=== PATIENT | female | born 1950 | race Caucasian/White ===

== ENCOUNTER 2016-10-18 14:42 | Observation (INO) | payer MEDICARE, OTHER ==
[2016-10-18] MEDS ORDERED: MEDICATION INTERVENTION MC PRN ×2 (17:37→17:38)
[2016-10-18] MEDS ORDERED: MORPHINE SULFATE 2 MG INJ IV PRN (20:14)
[2016-10-18 20:38] LABS: Lactic Acid 2.3 (0.4-2.0)
[2016-10-18 20:48] LABS: Mean Cell Volume 91.6 fl (78-100); Mean Corpuscular Hemoglobin 31.1 pg (26-32); Mean Platelet Volume 9.4 fl (6-9.5); Platelet Count 155 K/mm3 (150-450); Red Blood Count 4.54 M/mm3 (4.1-5.4); Red Cell Distribution Width 13.8 % (11.5-14.0); White Blood Count 5.9 K/mm3 (4.0-10.5)
[2016-10-18 21:05] LABS: ALBUMIN 2.8 g/dL (3.4-5.0); ANION GAP 13.3 MEQ/L (5-15); BILIRUBIN,TOTAL 0.8 mg/dL (0.2-1.0); Carbon Dioxide 27.5 mEq/L (21-32); Total Protein 7.2 gm/dL (6.4-8.2)
[2016-10-18] MEDS: Sodium Chloride 0.9% 1000 ML 1,000 ML IV SCH (21:28)
[2016-10-18] MEDS ORDERED: NovoLOG Insulin SQ PRN (21:42)
[2016-10-18] MEDS ORDERED: LOSARTAN POTASSIUM PO SCH (22:00)
[2016-10-18] MEDS ORDERED: MILNACIPRAN HCL PO SCH (22:00)
[2016-10-18] MEDS ORDERED: [UNRECOGNIZED DRUG - OTHER] SQ SCH (22:00)
[2016-10-18] MEDS ORDERED: Levofloxacin 500MG/100ML D5W 500 MG/100 ML BAG IV SCH (22:00)
[2016-10-18] MEDS ORDERED: INSULIN ASPART SQ SCH (22:00)
[2016-10-18] MEDS ORDERED: INSULIN ASPART PROTAMINE SQ SCH (22:00)
[2016-10-18] MEDS ORDERED: INSULIN DETEMIR 70 UNIT SQ SCH (22:00)
[2016-10-18] MEDS: Lantus Insulin SQ SCH (22:03)
[2016-10-18] MEDS: Cozaar 50 MG PO SCH (22:07)
[2016-10-18] MEDS: TYLENOL 325 MG PO PRN (22:09)
[2016-10-19] MEDS: TYLENOL 325 MG PO PRN ×2 (04:20→17:02)
[2016-10-19] MEDS: Glucophage 500 MG PO SCH (07:52)
[2016-10-19] MEDS: NovoLOG Insulin SQ SCH ×2 (08:17→16:51)
--- NOTE | 2016-10-19 08:52 | PCM.NOTE ---
Date and Time: 10/19/16 0849 Subjective Assessment: doing little better - Review of Systems Constitutional: No Fever, No Chills Eyes: No Symptoms Ears, Nose, & Throat: No Symptoms Respiratory: No Cough, No Short Of Breath Cardiac: No Chest Pain, No Edema, No Syncope Abdominal/Gastrointestinal: No Abdominal Pain, No Nausea, No Vomiting, No Diarrhea Genitourinary Symptoms: No Dysuria Musculoskeletal: No Back Pain, No Neck Pain Skin: Cellulitis, No Rash Neurological: No Dizziness, No Focal Weakness, No Sensory Changes Psychological: No Symptoms Endocrine: No Symptoms Hematologic/Lymphatic: No Symptoms Immunological/Allergic: No Symptoms Objective Exam General Appearance: no apparent distress, alert Neurologic Exam: alert, oriented x 3, cooperative, normal mood/affect, nml cerebellar function, sensation nml, No motor deficits Skin Exam: normal color, warm, dry Eye Exam: PERRL, EOMI, eyes nml inspection Ears, Nose, Throat Exam: normal ENT inspection, pharynx normal, moist mucous membranes Neck Exam: normal inspection, non-tender, supple, full range of motion Respiratory Exam: normal breath sounds, lungs clear, No respiratory distress Cardiovascular Exam: regular rate/rhythm, normal heart sounds Gastrointestinal/Abdomen Exam: soft, No tenderness, No mass Extremity Exam: normal inspection, normal range of motion, inflammation Back Exam: normal inspection, normal range of motion, No CVA tenderness, No vertebral tenderness Pelvic Exam: deferred Rectal Exam: deferred OBJECTIVE DATA Vital Signs: Vital Signs - 24 hr Temp Pulse Resp BP Pulse Ox 10/19/16 07:06 98.4 F 97 H 20 132/55 94 L 10/19/16 04:10 99.4 F 91 H 18 131/62 99 10/18/16 23:36 100.1 F 108 H 22 142/70 98 10/18/16 19:54 100.5 F 81 18 140/65 99 10/18/16 16:04 98.2 F 97 H 18 162/77 96 10/18/16 15:05 98.2 F 97 H 18 162 96 Pain Assessment - Last Documented Pain Intensity 5 Pain Scale Used 0-10 Pain Scale Intake and Output: Intake & Output 10/16/16 10/17/16 10/18/16 10/19/16 11:59 11:59 11:59 11:59 Intake Total 1503 Output Total 900 Balance 603 Weight 145.694 kg Lab Results: Accuchecks Accucheck Value: 169 Accucheck Value: 210 Lab Results-Last 24 Hours 10/18/16 10/18/16 10/18/16 Range/Units 20:32 20:32 20:32 WBC 5.9 (4.0-10.5) K/mm3 RBC 4.54 (4.1-5.4) M/mm3 Hgb 14.1 (12.0-16.0) gm/dl Hct 41.6 (35-47) % MCV 91.6 (78-100) fl MCH 31.1 (26-32) pg MCHC 33.9 (32-36) g/dl RDW 13.8 (11.5-14.0) % Plt Count 155 (150-450) K/mm3 MPV 9.4 (6-9.5) fl Sodium 138 (136-145) mEq/L Potassium 4.0 (3.5-5.1) mEq/L Chloride 101 (98-107) mEq/L Carbon Dioxide 27.5 (21-32) mEq/L Anion Gap 13.3 (5-15) MEQ/L BUN 19 (9-20) mg/dL Creatinine 1.06 (0.55-1.30) mg/dl Estimated GFR 55 ML/MIN Glucose 237 H (70-110) MG/DL Hemoglobin A1c 6.9 H (4.5-6.2) Lactic Acid (0.4-2.0) Calcium 9.0 (8.5-10.1) mg/dL Total Bilirubin 0.80 (0.2-1.0) mg/dL AST 46 H (15-37) U/L ALT 36 (12-78) U/L Alkaline Phosphatase 86 (46-116) U/L Serum Total Protein 7.2 (6.4-8.2) gm/dL Albumin 2.8 L (3.4-5.0) g/dL 10/18/16 10/19/16 Range/Units 20:35 00:55 WBC (4.0-10.5) K/mm3 RBC (4.1-5.4) M/mm3 Hgb (12.0-16.0) gm/dl Hct (35-47) % MCV (78-100) fl MCH (26-32) pg MCHC (32-36) g/dl RDW (11.5-14.0) % Plt Count (150-450) K/mm3 MPV (6-9.5) fl Sodium (136-145) mEq/L Potassium (3.5-5.1) mEq/L Chloride (98-107) mEq/L Carbon Dioxide (21-32) mEq/L Anion Gap (5-15) MEQ/L BUN (9-20) mg/dL Creatinine (0.55-1.30) mg/dl Estimated GFR ML/MIN Glucose (70-110) MG/DL Hemoglobin A1c (4.5-6.2) Lactic Acid 2.3 H 1.9 (0.4-2.0) Calcium (8.5-10.1) mg/dL Total Bilirubin (0.2-1.0) mg/dL AST (15-37) U/L ALT (12-78) U/L Alkaline Phosphatase (46-116) U/L Serum Total Protein (6.4-8.2) gm/dL Albumin (3.4-5.0) g/dL Radiology Exams: Radiology Procedures Category Date Time Status ARTERIAL BILAT LOWER EXTREMITY [US] Urgent Exams 10/19/16 08:19 Ordered Assessment/Plan (1) Cellulitis and abscess of lower extremity Current Visit: Yes Status: Acute Assessment & Plan: will continue antibiotics Code(s): L03.119 - CELLULITIS OF UNSPECIFIED PART OF LIMB; L02.419 - CUTANEOUS ABSCESS OF LIMB, UNSPECIFIED (2) Type 2 diabetes mellitus Current Visit: Yes Status: Acute Qualifiers: Diabetes mellitus complication status: with hyperglycemia Diabetes mellitus detention officer insulin use: with halfway use Qualified Code(s): E11.65 - Type 2 diabetes mellitus with hyperglycemia; Z79.4 - group home (current) use of insulin (3) Fibromyalgia Current Visit: Yes Status: Chronic
[2016-10-19] MEDS ORDERED: PREVNAR 13 SYRINGE IM ONE (10:00)
[2016-10-19] MEDS ORDERED: Glucotrol Xl 10 MG PO SCH (10:00)
[2016-10-19] MEDS ORDERED: NON-FORMULARY ITEM (Cetirizine Hcl [Zyrtec] 1 TAB) PO SCH (10:00)
[2016-10-19] MEDS: TENORMIN 50 MG PO SCH (10:09)
[2016-10-19] MEDS: CLARITIN 10 MG PO SCH (10:09)
[2016-10-19] MEDS: Lantus Insulin SQ SCH ×2 (10:10→22:38)
--- NOTE | 2016-10-19 12:44 | XRAY ---
Indication: Sialitis. Two-dimensional sonogram and color Doppler imaging of the major arteries of the left and right leg was performed. Comparison: None Examination of the right leg negative for focal arteriosclerotic plaquing, critical stenosis, or obstruction. Arterial waveforms are multiphasic throughout. Examination of the left leg also widely patent. Arterial waveforms are multiphasic. Ankle brachial indices not performed due to open wounds and fibromyalgia. Impression: Left and right leg arterial ultrasound is negative for critical stenosis or obstruction. CTA abdominal aorta with runoff may yield further information if there remains further clinical concern.
[2016-10-19] MEDS: PATIENT OWN MEDICATION PO SCH ×2 (14:25→22:24)
[2016-10-19] MEDS: Sodium Chloride 0.9% 1000 ML 1,000 ML IV SCH (16:54)
[2016-10-19] MEDS ORDERED: Levofloxacin 500MG/100ML D5W 500 MG/100 ML BAG IV SCH (22:00)
[2016-10-19] MEDS: Cozaar 50 MG PO SCH (22:21)
[2016-10-20] MEDS: NovoLOG Insulin SQ SCH (07:53)
[2016-10-20] MEDS: TYLENOL 325 MG PO PRN (07:53)
[2016-10-20] MEDS: Glucophage 500 MG PO SCH (07:53)
[2016-10-20] MEDS: Lantus Insulin SQ SCH (09:54)
[2016-10-20] MEDS: TENORMIN 50 MG PO SCH (09:54)
[2016-10-20] MEDS: CLARITIN 10 MG PO SCH (09:54)
[2016-10-20] MEDS: PATIENT OWN MEDICATION PO SCH (09:56)
[2016-10-20 12:27] VITALS: BP 129/62; PULSE 69; O2SAT 99
--- NOTE | 2016-10-20 12:53 | PCM.DS ---
Discharge Summary Date of Admission: 10/18/16 14:54 Admitting Physician: LEONEL YANCEY Primary Care Provider: LEONEL YANCEY Allergies Allergies Penicillins Allergy (Verified 10/18/16 15:26) Hives prednisone Allergy (Verified 10/18/16 15:26) Hives Sulfa (Sulfonamide Antibiotics) Allergy (Verified 10/18/16 15:26) Hives Hospital Summary - Hospital Course Hospital Course: Chief Complaint Diagnosis cellulitis Allergies Allergy/AdvReac Type Severity Reaction Status Date / Time Penicillins Allergy Hives Verified 10/18/16 15:26 prednisone Allergy Hives Verified 10/18/16 15:26 Sulfa (Sulfonamide Allergy Hives Verified 10/18/16 15:26 Antibiotics) Vital Signs (Last 24 hours) Temp Pulse Resp BP BP Pulse Ox 10/20/16 12:00 98.2 F 69 20 129/62 99 10/20/16 09:54 78 132/55 10/20/16 08:00 98.4 F 78 22 123/66 93 L 10/20/16 04:00 98.5 F 91 H 22 141/75 98 10/19/16 23:40 98.6 F 81 18 140/65 98 10/19/16 20:00 98.3 F 79 20 135/62 95 10/19/16 16:24 98.3 F 86 20 143/69 97 10/19/16 12:53 97.7 F 65 65 H 118/75 97 Home Medications Medication Instructions Recorded Confirmed Last Taken Type Atenolol 50 mg [Tenormin 50 1 tab PO DAILY 10/18/16 10/18/16 10/18/16 History mg] Cetirizine HCl [Zyrtec] 1 tab PO DAILY 10/18/16 10/18/16 10/18/16 History Empagliflozin [Jardiance] 25 mg PO QAM 10/18/16 10/18/16 10/10/16 History Glipizide [Glipizide ER] 1 tab PO DAILY 10/18/16 10/18/16 10/18/16 History Insulin Aspart [NovoLOG 30 unit SQ BIDWMEALS 10/18/16 10/18/16 10/18/16 History Insulin] Insulin Detemir [Levemir] 70 units SQ BID 10/18/16 10/18/16 10/18/16 History Losartan Potassium 1 tab PO QHS 10/18/16 10/18/16 10/17/16 History Metformin HCl 500 mg 1 tab PO QAM 10/18/16 10/18/16 10/18/16 History [Glucophage 500 MG] Milnacipran HCl [Savella] 1 tab PO BID 10/18/16 10/18/16 10/18/16 History Current Medications Generic Name Dose Route Start Last Admin Trade Name Freq PRN Reason Stop Dose Admin Acetaminophen 650 mg 10/18/16 21:42 10/20/16 07:53 Tylenol 325 Mg PO 11/17/16 21:41 650 mg Q6H PRN PRN Administration PAIN AND/OR FEVER Atenolol 50 mg 10/19/16 10:00 10/20/16 09:54 Tenormin 50 Mg PO 11/18/16 09:59 50 mg DAILY ENMANUEL Administration Glipizide 10 mg 10/19/16 10:00 10/19/16 10:10 Glucotrol Xl 10 Mg PO 11/18/16 09:59 10 mg DAILY ENMANUEL Administration Sodium Chloride 1,000 mls @ 50 mls/hr 10/18/16 20:15 10/19/16 16:54 Sodium Chloride 0.9% 1000 Ml IV 11/17/16 20:14 50 mls/hr .Q20H ENMANUEL Administration Levofloxacin/Dextrose 500 mg in 100 mls @ 100 mls/hr 10/19/16 22:00 10/19/16 22:22 Levofloxacin 500mg/100ml D5w IV 11/18/16 21:59 100 mls/hr Q24H22 ENMANUEL Administration Insulin Aspart 30 unit 10/19/16 08:00 10/20/16 07:53 Novolog Insulin SQ 11/18/16 07:59 30 unit BIDWM ENMANUEL Administration Insulin Aspart 0 unit 10/18/16 21:42 10/18/16 22:06 Novolog Insulin SQ 11/17/16 21:41 2 unit UD PRN Administration HYPERGLYCEMIA Insulin Glargine 70 unit 10/18/16 22:00 10/20/16 09:54 Lantus Insulin SQ 11/17/16 21:59 70 unit BID ENMANUEL Administration Loratadine 10 mg 10/19/16 10:00 10/20/16 09:54 Claritin 10 Mg PO 11/18/16 09:59 10 mg DAILY ENMANUEL Administration Losartan Potassium 25 mg 10/18/16 22:00 10/19/16 22:21 Cozaar 50 Mg PO 11/17/16 21:59 25 mg HS ENMANUEL Administration Metformin HCl 500 mg 10/19/16 08:00 10/20/16 07:53 Glucophage 500 Mg PO 11/18/16 07:59 500 mg BREAKFAST ENMANUEL Administration Morphine Sulfate 2 mg 10/18/16 20:14 Morphine Sulfate 2 Mg Inj IV 10/23/16 20:13 Q4H PRN PRN PAIN Patient Own Med ( 0 each 10/19/16 13:30 10/20/16 09:56 Savella 50 Mg) PO 11/18/16 13:29 50 each BID ENMANUEL Administration Discontinued Medications Generic Name Dose Route Start Last Admin Trade Name Freq PRN Reason Stop Dose Admin Levofloxacin/Dextrose 500 mg in 100 mls @ 100 mls/hr 10/18/16 22:00 10/18/16 22:07 Levofloxacin 500mg/100ml D5w IV 11/17/16 21:59 100 mls/hr Q24H10 ENMANUEL Administration Pneumococcal 13-Valent Conj Vacc 0.5 ml 10/19/16 10:00 10/19/16 11:59 Prevnar 13 Syringe IM 10/19/16 10:01 0.5 ml .ONCE ONE Administration Intake & Output (Last 24 hours) 10/18/16 10/19/16 10/20/16 10/21/16 11:59 11:59 11:59 11:59 Intake Total 1923 2996 Output Total 1100 2500 Balance 823 496 Weight 145.694 kg Microbiology Results (Last 24 hours) 10/18/16 20:32 Blood - Pending 10/18/16 20:32 Blood Blood Culture - Preliminary NO GROWTH TO DATE Orders (Last 24 hours) Category Date Time Status Levofloxacin [Levofloxacin 500MG/100ML D5W] Med 10/19/16 22:00 Active 500 mg in 100 ml IV Q24H22 Patient Own Med [Patient Own Medication] Med 10/19/16 13:30 Active 0 each PO BID Patient Care Notes (Last 24 hours) 10/20/16 09:00 (created 10/20/16 11:13) Case Management Note by DarnellMargie CONTINUES TO PLAN TO RETURN HOME WITH ON DISCHARGE. DECLINED NEEDS FOR DISCHARGE. DID DISCUSS HHC SERVICES FOR [facility] SUPPORT ON DISCHARGE. PT REFUSED NEED. WILL FOLLOW FOR ALL DC NEEDS. NORMALLY INDEPENDENT WITH ALL ADL'S. Initialized on 10/20/16 11:13 - END OF NOTE - Vitals & Intake/Output Vital Signs: Vital Signs Temperature 98.2 F 10/20/16 12:00 Pulse Rate 69 10/20/16 12:00 Respiratory Rate 20 10/20/16 12:00 Blood Pressure 129/62 10/20/16 12:00 O2 Sat by Pulse Oximetry 99 10/20/16 12:00 Intake & Output: Intake & Output 10/18/16 10/19/16 10/20/16 10/21/16 11:59 11:59 11:59 11:59 Intake Total 1923 2996 Output Total 1100 2500 Balance 823 496 Weight 145.694 kg - Lab Result Diagrams: 10/18/16 20:32 10/18/16 20:32 Lab Results-Last 24 Hrs: Accuchecks Date 10/19/16 Time 22:00 Accucheck Value: 124 Accucheck Value: 162 Accucheck Value: 169 Micro Results-Entire Visit: Microbiology 10/18/16 20:32 Blood Culture - Preliminary Blood NO GROWTH TO DATE Accuchecks Date 10/19/16 Time 22:00 Accucheck Value: 124 Accucheck Value: 162 Accucheck Value: 169 - Radiology Exams Ordered Rad Exams-Entire Visit: Radiology Procedures Category Date Time Status ARTERIAL BILAT LOWER EXTREMITY [US] Urgent Exams 10/19/16 08:19 Completed - Procedures and Test Procedures and Tests throughout Hospitalization: Therapy Orders & Screens 10/18/16 16:18 OT Screen per Nursing Assess Comment: Protocol Order Physician Instructions: Greater than 3 points order OT Admission Screening Reason For Exam: Triggered on Admission Diagnosis: cellulitis Open Wound/Cellutlitis/Pressure Ulcers: Yes Acute Fx/ORIF/Change in wt bearing status: No Severe MUSCULOSKELETAL pain: No ADL Dysfunction: No Acute CVA w/Hemiparesis/Hemiplegia: No Decreased Functional Mobility/Strength: No Sprain/Strain: No Acute Post-op Mobility Dysfunction: No Total Points: 5 PT Screen per Nursing Assess ONCE Comment: Protocol Order Physician Instructions: Greater than 3 points order PT Admission Screenin Reason For Exam: Triggered on Admission Diagnosis: cellulitis Open Wound/Cellutlitis/Pressure Ulcers: Yes Acute Fx/ORIF/Change in wt bearing status: No Severe MUSCULOSKELETAL pain: No ADL Dysfunction: No Acute CVA w/Hemiparesis/Hemiplegia: No Decreased Functional Mobility/Strength: No Sprain/Strain: No Acute Post-op Mobility Dysfunction: No Total Points: 5 10/19/16 08:19 PT Eval & Treat (MD Order) ROUTINE Evaluate: Yes Treat: Yes Reason for Eval:: wound management and treatment Diagnosis: cellulitis Discharge Exam General Appearance: no apparent distress, alert Neurologic Exam: alert, oriented x 3, cooperative, normal mood/affect, nml cerebellar function, sensation nml, No motor deficits Skin Exam: normal color, warm, dry Eye Exam: PERRL, EOMI, eyes nml inspection Ears, Nose, Throat Exam: normal ENT inspection, pharynx normal, moist mucous membranes Neck Exam: normal inspection, non-tender, supple, full range of motion Respiratory Exam: normal breath sounds, lungs clear, No respiratory distress Cardiovascular Exam: regular rate/rhythm, normal heart sounds Gastrointestinal/Abdomen Exam: soft, No tenderness, No mass Extremity Exam: normal inspection, normal range of motion, inflammation, swelling Back Exam: normal inspection, normal range of motion, No CVA tenderness, No vertebral tenderness Pelvic Exam: deferred Rectal Exam: deferred Final Diagnosis/Problem List - Final Discharge Diagnosis/Problem (1) Cellulitis and abscess of lower extremity Current Visit: Yes Status: Resolved (2) Type 2 diabetes mellitus Current Visit: Yes Status: Chronic (3) Fibromyalgia Current Visit: Yes Status: Chronic - Discharge Discharge Date: 10/20/16 Disposition: Home, Self-Care Condition: Stable Prescriptions: New Levofloxacin [Levaquin] 500 mg PO DAILY #10 tablet Continue Empagliflozin [Jardiance] 25 mg PO QAM Glipizide [Glipizide ER] 1 tab PO DAILY Atenolol 50 mg [Tenormin 50 mg] 1 tab PO DAILY Milnacipran HCl [Savella] 1 tab PO BID Losartan Potassium 1 tab PO QHS Metformin HCl 500 mg [Glucophage 500 MG] 1 tab PO QAM Cetirizine HCl [Zyrtec] 1 tab PO DAILY Insulin Detemir [Levemir] 70 units SQ BID Insulin Aspart [NovoLOG Insulin] 30 unit SQ BIDWMEALS Instructions: Cellulitis -- Adult, Diabetes Type 2 Follow up with: LEONEL YANCEY MD [Primary Care Provider] - 1 Week Forms: Patient Portal Information
== END 2016-10-20 14:05 | disposition home or self-care (01) ==
LOC: MED SURG 14:54
PROVIDERS: ADMIT General Practice; ATTEND General Practice
DX: L03.116 Cellulitis of left lower limb (principal); L03.115 Cellulitis of right lower limb; L02.419 Cutaneous abscess of limb, unspecified; E66.01 Morbid (severe) obesity due to excess calories; E11.65 Type 2 diabetes mellitus with hyperglycemia; M79.7 Fibromyalgia; M79.89 Other specified soft tissue disorders; Z79.4 Long term (current) use of insulin; Z23 Encounter for immunization; Z79.899 Other long term (current) drug therapy
CPT/HCPCS: 82962 ×3; 87040; 36415; 83036; 85027; 80053; 93925; 97161; 83605 ×2; A6457 ×2; 90670; G0009; G0378; J1956; A9270-GY

== ENCOUNTER 2017-08-05 15:37 | Emergency (ER) | payer MEDICARE, OTHER ==
[2017-08-05] MEDS ORDERED: Sodium Chloride 0.9% 1000 ML 1,000 ML IV STA (16:11)
[2017-08-05] MEDS ORDERED: Phenergan 25 MG INJ IV ONE (16:11)
[2017-08-05] MEDS ORDERED: Phenergan 25 MG INJ ONE (16:16)
[2017-08-05] MEDS ORDERED: Sodium Chloride 0.9% 1000 ML 1,000 ML ONE (16:16)
--- NOTE | 2017-08-05 16:19 | ERPHSYRPT ---
- History of Present Illness Time Seen by Provider: 08/05/17 16:05 Historian: patient Exam Limitations: no limitations Patient Subjective Stated Complaint: pt reports vomiting x 2 days-denies diarrhea-denies pain-denies fever Triage Nursing Assessment: pt pink warm and inx-[id number] nonlabored-pupils reactive-moving all extremities-pt has not taken insulin due to vomiting Physician History: FOR THE PAST 2 DAYS PT HAS HAD NAUSEA AND VOMITING X10 WITHOUT BLOOD. LAST BM WAS THIS AM AND WNL. PT DENIES FEVER, CHEST PAIN, SHORTNESS OF AIR; ADMITS TO ABDOMINAL SORENESS AFTER VOMITING. Allergies/Adverse Reactions: Penicillins Allergy (Verified 08/05/17 15:41) Hives prednisone Allergy (Verified 08/05/17 15:41) Hives Sulfa (Sulfonamide Antibiotics) Allergy (Verified 08/05/17 15:41) Hives Home Medications: Atenolol 50 mg [Tenormin 50 mg] 1 tab PO DAILY 10/18/16 [History] Cetirizine HCl [Zyrtec] 1 tab PO DAILY 10/18/16 [History] Glipizide [Glipizide ER] 1 tab PO DAILY 10/18/16 [History] Insulin Aspart [NovoLOG Insulin] 30 unit SQ BIDWMEALS 10/18/16 [History] Insulin Detemir [Levemir] 70 units SQ BID 10/18/16 [History] Losartan Potassium 1 tab PO QHS 10/18/16 [History] Metformin HCl 500 mg [Glucophage 500 MG] 1 tab PO QAM 10/18/16 [History] Milnacipran HCl [Savella] 1 tab PO BID 10/18/16 [History] Hx Tetanus, Diphtheria Vaccination/Date Given: No Hx Influenza Vaccination/Date Given: No Hx Pneumococcal Vaccination/Date Given: No Immunizations Up to Date: Yes - Review of Systems Constitutional: No Fever Respiratory: No Dyspnea Cardiac: No Chest Pain Abdominal/Gastrointestinal: Abdominal Pain, Nausea, Vomiting, No Diarrhea Neurological: No Headache All Other Systems: Reviewed and Negative - Past Medical History Pertinent Past Medical History: Yes Neurological History: No Pertinent History ENT History: No Pertinent History Cardiac History: Hypertension Respiratory History: No Pertinent History Endocrine Medical History: Diabetes Type II Musculoskeletal History: Fibromyalgia GI Medical History: No Pertinent History History: No Pertinent History Psycho-Social History: Panic Disorder Female Reproductive Disorders: No Pertinent History Other Medical History: heart valve issue, - Past Surgical History Past Surgical History: Yes Neuro Surgical History: No Pertinent History Cardiac: No Pertinent History Respiratory: No Pertinent History Gastrointestinal: No Pertinent History Genitourinary: No Pertinent History Musculoskeletal: Orthopedic Surgery Female Surgical History: Hysterectomy Other Surgical History: KNEE SURGERIES BILATERALLY - Social History Smoking Status: Never smoker Exposure to second hand smoke: No Drug Use: none Patient Lives Alone: No - Female History Hx Now: No - Nursing Vital Signs Nursing Vital Signs: Initial Vital Signs Temperature 98.1 F 08/05/17 15:44 Pulse Rate 76 08/05/17 15:44 Respiratory Rate 18 08/05/17 15:44 Blood Pressure 196/80 08/05/17 15:44 O2 Sat by Pulse Oximetry 99 08/05/17 15:44 Pain Scale Pain Intensity 0 - Physical Exam General Appearance: alert Eye Exam: PERRL/EOMI Ears, Nose, Throat Exam: TMs normal, pharynx normal, dry mucous membranes Neck Exam: normal inspection Respiratory Exam: lungs clear Cardiovascular Exam: normal heart sounds Gastrointestinal/Abdomen Exam: soft, normal bowel sounds, No tenderness Back Exam: normal range of motion Extremity Exam: other (+1 ANKLE EDEMA BILATERALLY) Neurologic Exam: alert, cooperative SpO2 Interpretation: normal SpO2: 99 Oxygen Delivery: Room Air - Course Nursing assessment & vital signs reviewed: Yes Ordered Tests: Active Orders 24 hr Category Date Time Status IV Insertion STAT Care 08/05/17 16:11 Active AMYLASE Stat Lab 08/05/17 16:00 Completed CBC W DIFF Stat Lab 08/05/17 16:00 Completed CMP Stat Lab 08/05/17 16:00 Completed LIPASE Stat Lab 08/05/17 16:00 Completed MAGNESIUM Stat Lab 08/05/17 16:00 Completed Manual Differential NC Stat Lab 08/05/17 16:00 Completed UA W/RFX UR CULTURE Stat Lab 08/05/17 17:45 Completed Medication Summary Discontinued Medications Generic Name Dose Route Start Last Admin Trade Name Freq PRN Reason Stop Dose Admin Sodium Chloride 1,000 mls @ 999 mls/hr 08/05/17 16:11 08/05/17 16:19 Sodium Chloride 0.9% 1000 Ml IV 08/05/17 17:11 999 mls/hr .Q1H1M STA Administration Sodium Chloride Confirm 08/05/17 16:16 Sodium Chloride 0.9% 1000 Ml Administered 08/05/17 16:17 Dose 1,000 mls @ ud .ROUTE .STK-MED ONE Insulin Human Regular 6 unit 08/05/17 17:46 08/05/17 18:00 Novolin R IV 08/05/17 17:47 6 unit STAT ONE Administration Insulin Human Regular Confirm 08/05/17 17:51 Novolin R Administered 08/05/17 17:52 Dose 6 unit .ROUTE .STK-MED ONE Promethazine HCl 12.5 mg 08/05/17 16:11 08/05/17 16:18 Phenergan 25 Mg Inj IV 08/05/17 16:12 12.5 mg STAT ONE Administration Promethazine HCl Confirm 08/05/17 16:16 Phenergan 25 Mg Inj Administered 08/05/17 16:17 Dose 25 mg .ROUTE .STK-MED ONE Lab/Rad Data: Laboratory Result Diagrams 08/05/17 16:00 08/05/17 16:00 Laboratory Results 08/05/17 08/05/17 08/05/17 Range/Units 17:45 16:00 16:00 WBC 7.0 (4.0-10.5) K/mm3 RBC 5.10 (4.1-5.4) M/mm3 Hgb 15.1 (12.0-16.0) gm/dl Hct 44.5 (35-47) % MCV 87.3 (78-100) fl MCH 29.6 (26-32) pg MCHC 33.9 (32-36) g/dl RDW 13.3 (11.5-14.0) % Plt Count 221 (150-450) K/mm3 MPV 10.0 H (6-9.5) fl Absolute Granulocytes 4.58 (1.4-6.9) Sodium 135 L (137-145) mmol/L Potassium 4.3 (3.5-5.1) mmol/L Chloride 99 (98-107) mmol/L Carbon Dioxide 22 (22-30) mmol/L Anion Gap 18.8 H (5-15) MEQ/L BUN 17 (7-17) mg/dL Creatinine 0.72 (0.52-1.04) mg/dL Estimated GFR > 60.0 ML/MIN Glucose 350 H (74-106) mg/dL Calcium 9.2 (8.4-10.2) mg/dL Magnesium 1.8 (1.6-2.3) mg/dL Total Bilirubin 0.60 (0.2-1.3) mg/dL AST 59 H (14-36) U/L ALT 36 H (0-35) U/L Alkaline Phosphatase 95 (38-126) U/L Serum Total Protein 7.9 (6.3-8.2) g/dL Albumin 4.1 (3.5-5.0) g/dL Amylase 65 (30-110) U/L Lipase 94 (23-300) U/L Ur Collection Type CLEAN CATCH Urine Color LT.YELLOW (YELLOW) Urine Appearance CLEAR (CLEAR) Urine pH 5.0 (5-6) Ur Specific [place] 1.005 (1.005-1.025) Urine Protein NEGATIVE (Negative) Urine Ketones NEGATIVE (NEGATIVE) Urine Blood NEGATIVE (0-5) [place]/ul Urine Nitrite NEGATIVE (NEGATIVE) Urine Bilirubin NEGATIVE (NEGATIVE) Urine Urobilinogen NORMAL (0-1) mg/dL Ur Leukocyte Esterase NEGATIVE (NEGATIVE) Urine Culture Reflexed NO (NO) Urine Glucose 1000 (NEGATIVE) mg/dL Specimen Received 08/05/17 1745 - Departure Time of Disposition: 18:14 Departure Disposition: Home Clinical Impression: VOMITING, DM Condition: Stable Critical Care Time: No Referrals: LEONEL YANCEY MD [Primary Care Provider] - Instructions: Vomiting -- Adult Additional Instructions: FOLLOW UP WITH PRIVATE DOCTOR TOMORROW. Prescriptions: Promethazine HCl 25 mg [Phenergan 25 mg] 25 mg PO Q4H PRN PRN #14 tablet PRN Reason: Nausea/Vomiting
[2017-08-05 16:24] LABS: Granulocyte Absolute (ANC) 4.58 (1.4-6.9); Hematocrit 44.5 % (35-47); Hemoglobin 15.1 gm/dl (12.0-16.0); Mean Cell Volume 87.3 fl (78-100); Mean Corpuscular Hemoglobin 29.6 pg (26-32); Mean Corpuscular Hgb Concent. 33.9 g/dl (32-36); Platelet Count 221 K/mm3 (150-450); Red Cell Distribution Width 13.3 % (11.5-14.0)
[2017-08-05 16:28] LABS: ALBUMIN 4.1 g/dL (3.5-5.0); ALKALINE PHOSPHATASE 95 U/L (38-126); AMYLASE 65 U/L (30-110); ANION GAP 18.8 MEQ/L (5-15); BLOOD UREA NITROGEN 17 mg/dL (7-17); CHLORIDE 99 mmol/L (98-107); Calcium 9.2 mg/dL (8.4-10.2); Carbon Dioxide 22 mmol/L (22-30); Creatinine 1 0.72 mg/dL (0.52-1.04); Glucose 350 mg/dL (74-106); LIPASE 94 U/L (23-300); Potassium 4.3 mmol/L (3.5-5.1); SGOT/AST 59 U/L (14-36); SODIUM 135 mmol/L (137-145); Total Protein 7.9 g/dL (6.3-8.2)
[2017-08-05 16:35] LABS: SGPT/ALT 36 U/L (0-35)
[2017-08-05] MEDS ORDERED: NovoLIN R IV ONE (17:46)
[2017-08-05] MEDS ORDERED: NovoLIN R ONE (17:51)
[2017-08-05 17:55] LABS: Appearance CLEAR (CLEAR); Bilirubin NEGATIVE (NEGATIVE); Blood NEGATIVE Ery/ul (0-5); Glucose 1000 mg/dL (NEGATIVE); Ketones NEGATIVE (NEGATIVE); Leukocyte Esterase NEGATIVE (NEGATIVE); Nitrite NEGATIVE (NEGATIVE); Protein,Urine Dip NEGATIVE (Negative); Specific Gravity 1.005 (1.005-1.025); Urobilinogen NORMAL mg/dL (0-1)
[2017-08-05 18:15] VITALS: O2SAT 99
[2017-08-05 18:43] VITALS: BP 124/76; PULSE 76
[2017-08-06 00:13] LABS: Eosinophil 1 % (0.00-3.0); Lymphocytes 28 % (24-44); Monocyte 6 % (0.0-12.0); Neutrophils 65 % (36.0-66.0); Platelet Estimate NORMAL (NORMAL); Total Cells Counted 100
== END 2017-08-05 18:50 | disposition home or self-care (01) ==
LOC: ED 15:37
DX: R11.2 Nausea with vomiting, unspecified (principal); Z79.899 Other long term (current) drug therapy; R10.9 Unspecified abdominal pain; E11.9 Type 2 diabetes mellitus without complications; Z79.4 Long term (current) use of insulin; Z79.84 Long term (current) use of oral hypoglycemic drugs
CPT/HCPCS: 36000; 36415; 80053; 81002; 82150; 82962; 83690; 83735; 85025; 96360; 96374; 96375; 99283; 99284; J2550; A9270-GY

== ENCOUNTER 2018-06-20 18:38 | Emergency (ER) | payer MEDICARE, OTHER ==
[2018-06-20] MEDS ORDERED: Sodium Chloride 0.9% 1000 ML 1,000 ML IV STA ×2 (19:18→21:19)
[2018-06-20] MEDS ORDERED: Zofran 4 MG/2 ML VIAL IV ONE (19:18)
[2018-06-20] MEDS ORDERED: Pepcid 20 MG VIAL IV ONE ×2 (19:18→19:22)
--- NOTE | 2018-06-20 19:18 | ERPHSYRPT ---
- History of Present Illness Time Seen by Provider: 06/20/18 19:10 Historian: patient Patient Subjective Stated Complaint: Pt states "I have been vomiting today. I do not hurt, but I cannot keep anything down." Triage Nursing Assessment: Pt alert and oriented X 3, skin pwd Pt ambulates with a slow shuffling gait, able to speak in clear full sentences Pt slightly tachypniec, obese. Physician History: 68 y/o diabetic white female presents with vomiting several times today. pt cannot hold liquids down. pt denies cp, soa, and abd pain. Timing/Duration: today Activities at Onset: none Abdominal Pain Onset Location: other (no abd pain) Pain Radiation: no radiation Severity of Pain-Max: none Severity of Pain-Current: none Modifying Factors: Improves With: nothing Associated Symptoms: loss of appetite, nausea, vomiting, No chest pain, No diarrhea, No headache, No shortness of breath Previous symptoms: no prior history Allergies/Adverse Reactions: Penicillins Allergy (Verified 08/05/17 15:41) Hives prednisone Allergy (Verified 08/05/17 15:41) Hives Sulfa (Sulfonamide Antibiotics) Allergy (Verified 08/05/17 15:41) Hives Home Medications: Atenolol 50 mg [Tenormin 50 mg] 1 tab PO DAILY 10/18/16 [History] Cetirizine HCl [Zyrtec] 1 tab PO DAILY 10/18/16 [History] Glipizide [Glipizide ER] 1 tab PO DAILY 10/18/16 [History] Insulin Aspart [NovoLOG Insulin] 30 unit SQ BIDWMEALS 10/18/16 [History] Insulin Detemir [Levemir] 70 units SQ BID 10/18/16 [History] Losartan Potassium 1 tab PO QHS 10/18/16 [History] Metformin HCl 500 mg [Glucophage 500 MG] 1 tab PO QAM 10/18/16 [History] Milnacipran HCl [Savella] 1 tab PO BID 10/18/16 [History] Hx Tetanus, Diphtheria Vaccination/Date Given: No Hx Influenza Vaccination/Date Given: Yes Hx Pneumococcal Vaccination/Date Given: Yes Immunizations Up to Date: Yes - Review of Systems Constitutional: No Symptoms Eyes: No Symptoms Ears, Nose, & Throat: No Symptoms Respiratory: No Symptoms Cardiac: No Symptoms Abdominal/Gastrointestinal: Nausea, Vomiting, No Abdominal Pain Genitourinary Symptoms: No Symptoms, No Dysuria, No Frequency, No Hematuria Musculoskeletal: No Symptoms Skin: No Symptoms Neurological: No Symptoms Psychological: No Symptoms Endocrine: No Symptoms Hematologic/Lymphatic: No Symptoms Immunological/Allergic: No Symptoms All Other Systems: Reviewed and Negative - Past Medical History Pertinent Past Medical History: Yes Neurological History: No Pertinent History ENT History: No Pertinent History Cardiac History: Hypertension Respiratory History: No Pertinent History Endocrine Medical History: Diabetes Type II Musculoskeletal History: Fibromyalgia GI Medical History: No Pertinent History History: No Pertinent History Psycho-Social History: Panic Disorder Female Reproductive Disorders: No Pertinent History Other Medical History: heart valve issue, - Past Surgical History Past Surgical History: Yes Neuro Surgical History: No Pertinent History Cardiac: No Pertinent History Respiratory: No Pertinent History Gastrointestinal: No Pertinent History Genitourinary: No Pertinent History Musculoskeletal: Orthopedic Surgery Female Surgical History: Hysterectomy Other Surgical History: KNEE SURGERIES BILATERALLY - Social History Smoking Status: Former smoker Exposure to second hand smoke: No Drug Use: none Patient Lives Alone: No - Female History Hx Now: No - Nursing Vital Signs Nursing Vital Signs: Initial Vital Signs Temperature 97.7 F 06/20/18 18:55 Pulse Rate 98 H 06/20/18 18:55 Respiratory Rate 22 06/20/18 18:55 Blood Pressure 216/97 06/20/18 18:55 O2 Sat by Pulse Oximetry 98 06/20/18 18:55 Pain Scale Pain Intensity 2 - Physical Exam General Appearance: mild distress, alert, anxiety Eye Exam: PERRL/EOMI, eyes nml inspection Ears, Nose, Throat Exam: normal ENT inspection, dry mucous membranes Neck Exam: normal inspection, non-tender, supple, full range of motion Respiratory Exam: normal breath sounds, lungs clear, airway intact, No chest tenderness, No respiratory distress, No accessory muscle use, No rhonchi, No wheezing, No stridor Cardiovascular Exam: regular rate/rhythm, normal heart sounds, normal peripheral pulses Gastrointestinal/Abdomen Exam: soft, normal bowel sounds, No tenderness, No guarding, No rebound Pelvic Exam: not done Rectal Exam: not done, hemorrhoids Back Exam: normal inspection, normal range of motion, No CVA tenderness, No vertebral tenderness Extremity Exam: normal inspection, normal range of motion, pelvis stable Neurologic Exam: alert, oriented x 3, cooperative, staff genetic counselor II-XII nml as tested Skin Exam: normal color, warm, dry Lymphatic Exam: No adenopathy SpO2 Interpretation: normal SpO2: 98 O2 Delivery: Room Air - Course Nursing assessment & vital signs reviewed: Yes Ordered Tests: Active Orders 24 hr Category Date Time Status Clean Catch Urine Specimen STAT Care 06/20/18 19:18 Active IV Insertion STAT Care 06/20/18 19:18 Active AMYLASE Stat Lab 06/20/18 19:20 Completed CBC W DIFF Stat Lab 06/20/18 19:20 Completed CMP Stat Lab 06/20/18 19:20 Completed CULTURE,URINE Stat Lab 06/20/18 19:20 Received LIPASE Stat Lab 06/20/18 19:20 Completed UA W/RFX UR CULTURE Stat Lab 06/20/18 19:20 Completed Medication Summary Generic Name Dose Route Start Last Admin Trade Name Freq PRN Reason Stop Dose Admin Fluconazole 100 mg 06/21/18 21:10 Diflucan 100 Mg PO 06/21/18 21:11 ONCE ONE Discontinued Medications Generic Name Dose Route Start Last Admin Trade Name Freq PRN Reason Stop Dose Admin Cephalexin HCl 500 mg 06/20/18 21:09 Keflex 500 Mg PO 06/20/18 21:10 STAT ONE Famotidine 20 mg 06/20/18 19:18 06/20/18 19:26 Pepcid 20 Mg Vial IV 06/20/18 19:19 20 mg STAT ONE Administration Famotidine Confirm 06/20/18 19:22 Pepcid 20 Mg Vial Administered 06/20/18 19:23 Dose 20 mg IV .STK-MED ONE Sodium Chloride 1,000 mls @ 999 mls/hr 06/20/18 19:18 06/20/18 19:26 Sodium Chloride 0.9% 1000 Ml IV 06/20/18 20:18 999 mls/hr .Q1H1M STA Administration Sodium Chloride Confirm 06/20/18 19:22 Sodium Chloride 0.9% 1000 Ml Administered 06/20/18 19:23 Dose 1,000 mls @ ud .ROUTE .STK-MED ONE Ondansetron HCl 4 mg 06/20/18 19:18 06/20/18 19:26 Zofran 4 Mg/2 Ml Vial IV 06/20/18 19:19 4 mg STAT ONE Administration Ondansetron HCl Confirm 06/20/18 19:22 Zofran 4 Mg/2 Ml Vial Administered 06/20/18 19:23 Dose 4 mg .ROUTE .STK-MED ONE Lab/Rad Data: Laboratory Result Diagrams 06/20/18 19:20 06/20/18 19:20 Laboratory Results 06/20/18 06/20/18 06/20/18 Range/Units 19:20 19:20 19:20 WBC 8.6 (4.0-10.5) K/mm3 RBC 5.00 (4.1-5.4) M/mm3 Hgb 15.2 (12.0-16.0) gm/dl Hct 44.1 (35-47) % MCV 88.2 (78-100) fl MCH 30.4 (26-32) pg MCHC 34.5 (32-36) g/dl RDW 13.6 (11.5-14.0) % Plt Count 236 (150-450) K/mm3 MPV 9.7 H (6-9.5) fl Gran % 63.8 (36.0-66.0) % Eos # (Auto) 0.09 (0-0.5) Absolute Lymphs (auto) 2.51 (1.0-4.6) Absolute Monos (auto) 0.51 (0.0-1.3) Lymphocytes % 29.1 (24.0-44.0) % Monocytes % 5.9 (0.0-12.0) % Eosinophils % 1.0 (0.00-5.0) % Basophils % 0.2 (0.0-0.4) % Absolute Granulocytes 5.50 (1.4-6.9) Basophils # 0.02 (0-0.4) Sodium 139 (137-145) mmol/L Potassium 4.0 (3.5-5.1) mmol/L Chloride 101 (98-107) mmol/L Carbon Dioxide 25 (22-30) mmol/L Anion Gap 16.5 H (5-15) MEQ/L BUN 23 H (7-17) mg/dL Creatinine 0.78 (0.52-1.04) mg/dL Estimated GFR > 60.0 ML/MIN Glucose 189 H (74-106) mg/dL Calcium 9.9 (8.4-10.2) mg/dL Total Bilirubin 0.60 (0.2-1.3) mg/dL AST 41 H (14-36) U/L ALT 34 (0-35) U/L Alkaline Phosphatase 104 (38-126) U/L Serum Total Protein 8.5 H (6.3-8.2) g/dL Albumin 4.5 (3.5-5.0) g/dL Amylase 79 (30-110) U/L Lipase 76 (23-300) U/L Urine Color YELLOW (YELLOW) Urine Appearance SLIGHTLY CLOUDY (CLEAR) Urine pH 6.0 (5-6) Ur Specific [place] 1.020 (1.005-1.025) Urine Protein 30 (Negative) Urine Ketones NEGATIVE (NEGATIVE) Urine Blood NEGATIVE (0-5) [place]/ul Urine Nitrite NEGATIVE (NEGATIVE) Urine Bilirubin NEGATIVE (NEGATIVE) Urine Urobilinogen NEGATIVE (0-1) mg/dL Ur Leukocyte Esterase SMALL (NEGATIVE) Urine WBC (Auto) >100 (0-5) /HPF Urine RBC (Auto) 3-5 (0-2) /HPF U Epithel Cells (Auto) MODERATE (FEW) /HPF Urine Bacteria (Auto) MANY (NEGATIVE) /HPF Urine Mucus (Auto) SLIGHT (NEGATIVE) /HPF Urine Culture Reflexed YES (NO) Urine Glucose 150 (NEGATIVE) mg/dL - Progress Progress: improved, re-examined Progress Note: 06/20/18 21:11 pt states she is feeling much better. she is yasmeen pos. she states she can take keflex but can cause yeast infection Counseled pt/family regarding: lab results, diagnosis, need for follow-up, rad results - Departure Time of Disposition: 21:11 Departure Disposition: Home Clinical Impression: UTI (urinary tract infection), Vomiting Condition: Stable Critical Care Time: No Referrals: LEONEL YANCEY MD [Primary Care Provider] - Additional Instructions: drink plenty of fluids. take medications as prescribed. Prescriptions: Promethazine HCl 25 mg [Phenergan 25 mg] 25 mg PO Q8H PRN PRN #10 tablet PRN Reason: Nausea/Vomiting Cephalexin Mh 500 mg [Keflex 500 mg] 500 mg PO TID #21 capsule Fluconazole 100 mg [Diflucan 100 MG] 100 mg PO DAILY #2 tablet
[2018-06-20] MEDS ORDERED: Zofran 4 MG/2 ML VIAL ONE ×2 (19:22→21:17)
[2018-06-20] MEDS ORDERED: Sodium Chloride 0.9% 1000 ML 1,000 ML ONE ×2 (19:22→21:19)
[2018-06-20 19:29] LABS: BASOPHIL % 0.2 % (0.0-0.4); Basophil (Absolute #) 0.02 (0-0.4); Eosinophil (Absolute #) 0.09 (0-0.5); Granulocytes % 63.8 % (36.0-66.0); Hematocrit 44.1 % (35-47); Hemoglobin 15.2 gm/dl (12.0-16.0); Lymphocyte (Absolute #) 2.51 (1.0-4.6); Lymphocytes % 29.1 % (24.0-44.0); Mean Cell Volume 88.2 fl (78-100); Mean Corpuscular Hemoglobin 30.4 pg (26-32); Mean Corpuscular Hgb Concent. 34.5 g/dl (32-36); Mean Platelet Volume 9.7 fl (6-9.5); Monocyte (Absolute #) 0.51 (0.0-1.3); Monocytes % 5.9 % (0.0-12.0); Platelet Count 236 K/mm3 (150-450); Red Cell Distribution Width 13.6 % (11.5-14.0); White Blood Count 8.6 K/mm3 (4.0-10.5)
[2018-06-20 19:40] LABS: ALBUMIN 4.5 g/dL (3.5-5.0); ALKALINE PHOSPHATASE 104 U/L (38-126); AMYLASE 79 U/L (30-110); ANION GAP 16.5 MEQ/L (5-15); BLOOD UREA NITROGEN 23 mg/dL (7-17); CHLORIDE 101 mmol/L (98-107); Calcium 9.9 mg/dL (8.4-10.2); Carbon Dioxide 25 mmol/L (22-30); Creatinine 1 0.78 mg/dL (0.52-1.04); Glucose 189 mg/dL (74-106); LIPASE 76 U/L (23-300); SGOT/AST 41 U/L (14-36); SGPT/ALT 34 U/L (0-35); SODIUM 139 mmol/L (137-145); Total Protein 8.5 g/dL (6.3-8.2)
[2018-06-20 19:52] LABS: Appearance SLIGHTLY CLOUDY (CLEAR); Bacteria MANY /HPF (NEGATIVE); Bilirubin NEGATIVE (NEGATIVE); Blood NEGATIVE Ery/ul (0-5); Epithelial Cells MODERATE /HPF (FEW); Glucose 150 mg/dL (NEGATIVE); Ketones NEGATIVE (NEGATIVE); Leukocyte Esterase SMALL (NEGATIVE); Mucus SLIGHT /HPF (NEGATIVE); Nitrite NEGATIVE (NEGATIVE); Protein,Urine Dip 30 (Negative); Urobilinogen NEGATIVE mg/dL (0-1); WBC >100 /HPF (0-5)
[2018-06-20 20:40] VITALS: BP 161/69
[2018-06-20 20:59] VITALS: PULSE 85
[2018-06-20] MEDS ORDERED: KEFLEX 500 MG PO ONE (21:09)
[2018-06-20 21:16] VITALS: O2SAT 98
[2018-06-20] MEDS ORDERED: KEFLEX 500 MG ONE (21:17)
[2018-06-20] MEDS ORDERED: Phenergan 25 MG INJ IM ONE (21:19)
[2018-06-20] MEDS ORDERED: Phenergan 25 MG INJ ONE (21:22)
[2018-06-20] MEDS ORDERED: Diflucan 100 MG ONE (21:40)
[2018-06-21] MEDS ORDERED: Diflucan 100 MG PO ONE (21:10)
== END 2018-06-20 22:45 | disposition home or self-care (01) ==
LOC: ED 18:38
DX: N39.0 Urinary tract infection, site not specified (principal); R11.2 Nausea with vomiting, unspecified; E11.9 Type 2 diabetes mellitus without complications; Z79.4 Long term (current) use of insulin; I10 Essential (primary) hypertension; M79.7 Fibromyalgia
CPT/HCPCS: 36000; 36415; 80053; 81001; 82150; 83690; 85025; 87077; 87086; 87186; 96360; 96361; 96372; 96374; 96375; 99284; J2405; J2550; A9270-GY

== ENCOUNTER 2019-05-12 10:33 | Emergency (ER) | payer MEDICARE, OTHER ==
--- NOTE | 2019-05-12 11:10 | ERPHSYRPT ---
- History of Present Illness Time Seen by Provider: 05/12/19 10:59 Source: patient Exam Limitations: no limitations Physician History: pt states she has had a strange feeling over her left facial cheek for the past 3 days with swelling starting yesterday over the same area; denies fever, chest pain, vomiting. Allergies/Adverse Reactions: Penicillins Allergy (Verified 05/12/19 10:57) Hives prednisone Allergy (Verified 05/12/19 10:57) Hives Sulfa (Sulfonamide Antibiotics) Allergy (Verified 05/12/19 10:57) Hives Home Medications: Atenolol 50 mg [Tenormin 50 mg] 1 tab PO HS 10/18/16 [History] Cetirizine HCl [Zyrtec] 1 tab PO HS 10/18/16 [History] Glipizide [Glipizide ER] 1 tab PO HS 10/18/16 [History] Insulin Aspart [NovoLOG Insulin] 30 unit SQ BIDWMEALS 10/18/16 [History] Insulin Detemir [Levemir] 70 units SQ BID 10/18/16 [History] Losartan Potassium 1 tab PO QHS 10/18/16 [History] Metformin HCl 500 mg [Glucophage 500 MG] 1 tab PO HS 10/18/16 [History] Milnacipran HCl [Savella] 1 tab PO BID 10/18/16 [History] Meloxicam 7.5 mg [Mobic 7.5 MG] 7.5 mg PO BID 05/12/19 [History] Hx Tetanus, Diphtheria Vaccination/Date Given: No Hx Influenza Vaccination/Date Given: Yes Hx Pneumococcal Vaccination/Date Given: Yes - Review of Systems Constitutional: No Fever Ears, Nose, & Throat: Mouth Swelling (left upper) Respiratory: No Dyspnea Cardiac: No Chest Pain All Other Systems: Reviewed and Negative - Past Medical History Pertinent Past Medical History: Yes Neurological History: No Pertinent History ENT History: No Pertinent History Cardiac History: Hypertension Respiratory History: No Pertinent History Endocrine Medical History: Diabetes Type II Musculoskeletal History: Fibromyalgia GI Medical History: No Pertinent History History: No Pertinent History Psycho-Social History: Panic Disorder Female Reproductive Disorders: No Pertinent History Other Medical History: heart valve issue, - Past Surgical History Past Surgical History: Yes Neuro Surgical History: No Pertinent History Cardiac: No Pertinent History Respiratory: No Pertinent History Gastrointestinal: No Pertinent History Genitourinary: No Pertinent History Musculoskeletal: Orthopedic Surgery Female Surgical History: Hysterectomy Other Surgical History: KNEE SURGERIES BILATERALLY - Social History Smoking Status: Former smoker Exposure to second hand smoke: No Drug Use: none Patient Lives Alone: No - Physical Exam General Appearance: alert Eye Exam: bilateral eye: PERRL, EOMI Ear Exam: bilateral ear: TM normal Nasal Exam: normal inspection Throat Exam: maxillary swelling (left upper gum mildly edematous and erythematous around a premolar.) Neck Exam: normal inspection Cardiovascular/Respiratory Exam: normal breath sounds, heart sounds normal Abdominal Exam: soft (b.s. normal) Neurologic Exam: alert, cooperative Skin Exam: warm, dry - Departure Clinical Impression: Abscessed tooth Condition: Stable Critical Care Time: No Referrals: LEONEL YANCEY MD [Primary Care Provider] - Instructions: Tooth Abscess (DC) Additional Instructions: follow up with private dentist tomorrow. Prescriptions: Cephalexin Monohydrate [Keflex] 500 mg PO TID #30 capsule
[2019-05-12] MEDS ORDERED: Rocephin 1000 MG INJ IM ONE (11:12)
[2019-05-12] MEDS ORDERED: Rocephin 1000 MG INJ ONE (11:15)
[2019-05-12] MEDS ORDERED: XYLOCAINE 1% HCL 20 ML MDV ONE (11:15)
[2019-05-12 12:43] VITALS: BP 131/61; PULSE 60; O2SAT 98
== END 2019-05-12 12:47 | disposition home or self-care (01) ==
LOC: ED 10:33
DX: K04.7 Periapical abscess without sinus (principal)
CPT/HCPCS: 96372; 99283; J0696

== ENCOUNTER 2020-09-22 11:22 | Observation (INO) | payer MEDICARE, OTHER ==
[2020-09-22 12:32] LABS: INFLUENZA A NEGATIVE (NEGATIVE); INFLUENZA B NEGATIVE (NEGATIVE); RESPIRATORY SYNCTIAL VIRUS NEGATIVE (Negative)
[2020-09-22] MEDS ORDERED: TYLENOL EXTRA STRENGTH 500 MG PO PRN (14:37)
[2020-09-22] MEDS ORDERED: Ativan 2 MG/1 ML VIAL IV PRN ×2 (14:37→15:45)
[2020-09-22] MEDS ORDERED: PROVENTIL Solution 2.5 MG/0.5 ML IH PRN (14:38)
[2020-09-22] MEDS ORDERED: REMDESIVIR 200 MG in Sodium Chloride 0.9% 250 ML 250 ML IV ONE (15:00)
[2020-09-22] MEDS: DECADRON 10MG INJ. IV SCH (15:16)
[2020-09-22] MEDS: ENOXAPARIN SODIUM SQ SCH (15:16)
--- NOTE | 2020-09-22 15:33 | HP ---
CHIEF COMPLAINT: Shortness of breath, cough. HISTORY OF PRESENT ILLNESS: The patient is a 70 year-old white female who came to the emergency room with the above complaints after coughing for seven days. Actually she went to Dr. Villagran's office and there she had an O2 saturation of 85% after she walked in and it went back up to 90% with sitting. She is a nonsmoker, cough is productive. She achy, tired, chills, has not taken the COVID vaccine. She does not know of anybody who has had COVID recently although her [id number] from COVID. MEDICATIONS: Zyrtec 10 q.d., Savella 50 once a day, losartan 25 once a day, Atenolol 50 q.d., Glipizide extended release 10 mg takes one a day although it is prescribed b.i.d., Humalog Qwik Pen 100 units. She takes 40 units at supper time. Levemir 100 units b.i.d., Metformin 500 once a day. She is off the azithromycin and was placed on that initially. ALLERGIES: DARVOCET. PENICILLIN. PREDNISONE. SULFA. PAST MEDICAL HISTORY: Diabetes mellitus for at least 20 years. Hyperlipidemia. Seasonal allergies. Fibromyalgia. Osteoporosis. History of depression, anxiety, panic attacks. Hospitalizations: The last one was in 2017 because of peripheral edema. She has had no deep vein thrombosis. REVIEW OF SYSTEMS: GENERAL: No loss of appetite, fever, chills. No change in taste. No weight change. HEENT: No sore throat. No change in vision. RESPIRATORY: Shortness of breath on exertion. Moderate cough with exertion. CVS: No history of heart attacks, heart failure. She is on an WILLIAM inhibitor so I assume she has hypertension although she has long standing diabetes also so it may be for renal protection. GI: No abdominal pain, nausea, vomiting or change in bowel movements. MUSCULOSKELETAL: The patient had knee replacement. Knees ache and does not walk well. NEUROLOGIC: No headaches. No weakness. No dizziness. : No problems urinating. FAMILY HISTORY: Father and mother . Two sons, one daughter healthy. SOCIAL HISTORY: Nonsmoker, does not drink. She lives in [place]. PHYSICAL EXAMINATION: The patient is an obese, appropriately aged 70 year-old white female who is alert and pleasant. HEENT: Pupils equal and reactive to light. NECK: Supple without adenopathy. CHEST: Clear. No wheezes or rales. CVS: Regular rate. No murmurs or gallops. ABDOMEN: Obese. No tenderness or organomegaly. EXTREMITIES: Trace edema. Chronic stasis changes. Good pulses. LAB DATA AND TESTS: X-ray: The patient has bilateral pneumonia typical for COVID. Labs are not on the chart. IMPRESSION: COVID test is positive. Other medical problems: Morbid obesity, diabetes mellitus, hypertension without heart failure. PLAN: The patient will be started on Remdesivir, Decadron. She is anticoagulated prophylactically. She will be given some Ativan for anxiety which is chronic which could be made worse with the Decadron. These things have been explained to her. We are optimistic about her prognosis. I will follow.
[2020-09-22] MEDS ORDERED: MOTRIN 200 MG PO PRN (15:45)
[2020-09-22] MEDS ORDERED: MEDICATION INTERVENTION PO SCH (16:00)
[2020-09-22 16:24] LABS: ALBUMIN 3.2 g/dL (3.5-5.0); ALKALINE PHOSPHATASE 73 U/L (38-126); ANION GAP 8.5 MEQ/L (5-15); BLOOD UREA NITROGEN 18 mg/dL (7-17); CHLORIDE 102 mmol/L (98-107); Calcium 7.9 mg/dL (8.4-10.2); Carbon Dioxide 29 mmol/L (22-30); Creatinine 1 0.92 mg/dL (0.52-1.04); EST GLOMERULAR FILTRATION RATE > 60.0 ML/MIN; Glucose 214 mg/dL (74-106); NT PRO BNP 296 pg/mL (0-900); Potassium 4.4 mmol/L (3.5-5.1); SGOT/AST 45 U/L (14-36); SGPT/ALT 23 U/L (0-35); SODIUM 135 mmol/L (137-145); Total Protein 6.1 g/dL (6.3-8.2)
--- NOTE | 2020-09-22 16:26 | XRAY ---
Indication: Short of breath. Positive COVID 19. Comparison: April 21, 2009. Portable chest demonstrates new diffuse bilateral patchy airspace disease without consolidation/pleural effusion. Heart not enlarged. Bony thorax intact again with mild degenerative changes.
[2020-09-22 16:37] LABS: Absolute Neutrophil Ct (ANC) 2.42 (1.4-6.9); Basophil (Absolute #) 0 (0-0.4); Eosinophil % 0.2 % (0.00-5.0); Eosinophil (Absolute #) 0.01 (0-0.5); Hematocrit 38.2 % (35-47); Hemoglobin 12.5 gm/dl (12.0-16.0); Lymphocyte (Absolute #) 1.64 (1.0-4.6); Lymphocytes % 37.1 % (24.0-44.0); Mean Cell Volume 89.7 fl (78-100); Mean Corpuscular Hemoglobin 29.3 pg (26-32); Mean Corpuscular Hgb Concent. 32.7 g/dl (32-36); Mean Platelet Volume 9.8 fl (7.5-11.0); Monocyte (Absolute #) 0.35 (0.0-1.3); Monocytes % 7.9 % (0.0-12.0); Neutrophil % 54.8 % (36.0-66.0); Platelet Count 146 K/mm3 (150-450); Red Blood Count 4.26 M/mm3 (4.1-5.4); Red Cell Distribution Width 13.3 % (11.5-14.0); White Blood Count 4.4 K/mm3 (4.0-10.5)
[2020-09-22] MEDS: HYDROCODONE-CHLORPHEN ER SUSP PO PRN ×2 (16:51→22:51)
[2020-09-22] MEDS: HUMALOG SQ SCH (16:53)
[2020-09-22] MEDS: CLARITIN 10 MG PO SCH (21:48)
[2020-09-22] MEDS: Glucophage 500 MG PO SCH (21:48)
[2020-09-22] MEDS: Glucotrol Xl 10 MG PO SCH (21:48)
[2020-09-22] MEDS: Cozaar 50 MG PO SCH (21:48)
[2020-09-22] MEDS: Lantus Insulin SQ SCH (21:49)
[2020-09-22] MEDS: TENORMIN 50 MG PO SCH (21:50)
[2020-09-22] MEDS ORDERED: NON-FORMULARY ITEM (Cetirizine Hcl [Zyrtec] 1 TAB) PO SCH (22:00)
[2020-09-22] MEDS ORDERED: LOSARTAN POTASSIUM PO SCH (22:00)
[2020-09-23] MEDS: HYDROCODONE-CHLORPHEN ER SUSP PO PRN (05:27)
[2020-09-23] MEDS ORDERED: HYDROCODONE-CHLORPHEN ER SUSP PO PRN (08:15)
[2020-09-23] MEDS: HUMALOG SQ SCH ×3 (08:19→17:03)
[2020-09-23] MEDS: DECADRON 10MG INJ. IV SCH (09:58)
[2020-09-23] MEDS: ENOXAPARIN SODIUM SQ SCH (09:59)
[2020-09-23] MEDS ORDERED: INSULIN DETEMIR 100 UNIT SQ SCH (10:00)
[2020-09-23] MEDS ORDERED: MILNACIPRAN HCL PO SCH (10:00)
[2020-09-23] MEDS ORDERED: Zofran 4 MG/2 ML VIAL IV PRN (10:14)
[2020-09-23] MEDS: REMDESIVIR 100 MG in Sodium Chloride 0.9% 100 ML BAG 100 ML IV SCH (14:49)
[2020-09-23] MEDS: Glucophage 500 MG PO SCH (21:53)
[2020-09-23] MEDS: Cozaar 50 MG PO SCH (21:53)
[2020-09-23] MEDS: CLARITIN 10 MG PO SCH (21:53)
[2020-09-23] MEDS: TENORMIN 50 MG PO SCH (21:53)
[2020-09-23] MEDS: Glucotrol Xl 10 MG PO SCH (21:53)
[2020-09-23] MEDS: Lantus Insulin SQ SCH (21:53)
[2020-09-23] MEDS: HUMALOG SQ PRN (21:54)
[2020-09-24] MEDS ORDERED: VENTOLIN COMMON CANISTER IH PRN (03:54)
[2020-09-24] MEDS: HUMALOG SQ SCH ×3 (07:32→16:59)
[2020-09-24] MEDS: ENOXAPARIN SODIUM SQ SCH (09:05)
[2020-09-24] MEDS: DECADRON 10MG INJ. IV SCH (09:05)
[2020-09-24] MEDS: REMDESIVIR 100 MG in Sodium Chloride 0.9% 100 ML BAG 100 ML IV SCH (15:17)
[2020-09-24] MEDS: Glucophage 500 MG PO SCH (16:59)
[2020-09-24] MEDS: CLARITIN 10 MG PO SCH (21:50)
[2020-09-24] MEDS: TENORMIN 50 MG PO SCH (21:51)
[2020-09-24] MEDS: Lantus Insulin SQ SCH (21:51)
[2020-09-24] MEDS: Cozaar 50 MG PO SCH (21:51)
[2020-09-24] MEDS: Glucotrol Xl 10 MG PO SCH (21:51)
[2020-09-24] MEDS: HUMALOG SQ PRN (21:52)
[2020-09-25] MEDS: HUMALOG SQ SCH ×3 (08:09→16:55)
[2020-09-25] MEDS: Glucophage 500 MG PO SCH ×2 (08:09→16:55)
[2020-09-25] MEDS: ENOXAPARIN SODIUM SQ SCH (09:48)
[2020-09-25] MEDS: DECADRON 10MG INJ. IV SCH (09:48)
[2020-09-25] MEDS: REMDESIVIR 100 MG in Sodium Chloride 0.9% 100 ML BAG 100 ML IV SCH (15:06)
[2020-09-25] MEDS: Glucotrol Xl 10 MG PO SCH (21:12)
[2020-09-25] MEDS: CLARITIN 10 MG PO SCH (21:12)
[2020-09-25] MEDS: Lantus Insulin SQ SCH (21:12)
[2020-09-25] MEDS: TENORMIN 50 MG PO SCH (21:12)
[2020-09-25] MEDS: Cozaar 50 MG PO SCH (21:13)
[2020-09-26] MEDS: Glucophage 500 MG PO SCH (07:52)
[2020-09-26 08:14] LABS: Hematocrit 41.3 % (35-47); Hemoglobin 13.7 gm/dl (12.0-16.0); Mean Cell Volume 88.4 fl (78-100); Mean Corpuscular Hemoglobin 29.3 pg (26-32); Mean Corpuscular Hgb Concent. 33.2 g/dl (32-36); Mean Platelet Volume 9.5 fl (7.5-11.0); Platelet Count 273 K/mm3 (150-450); Red Blood Count 4.67 M/mm3 (4.1-5.4); Red Cell Distribution Width 13.1 % (11.5-14.0); White Blood Count 8.8 K/mm3 (4.0-10.5)
[2020-09-26] MEDS: HUMALOG SQ SCH ×2 (08:34→08:51)
[2020-09-26 08:38] LABS: ALBUMIN 3.3 g/dL (3.5-5.0); ALKALINE PHOSPHATASE 86 U/L (38-126); ANION GAP 8.1 MEQ/L (5-15); BLOOD UREA NITROGEN 41 mg/dL (7-17); CHLORIDE 107 mmol/L (98-107); Calcium 8.3 mg/dL (8.4-10.2); Carbon Dioxide 28 mmol/L (22-30); Creatinine 1 0.82 mg/dL (0.52-1.04); EST GLOMERULAR FILTRATION RATE > 60.0 ML/MIN; Glucose 172 mg/dL (74-106); Potassium 4.1 mmol/L (3.5-5.1); SGOT/AST 30 U/L (14-36); SGPT/ALT 23 U/L (0-35); SODIUM 140 mmol/L (137-145); Total Protein 6.4 g/dL (6.3-8.2)
[2020-09-26] MEDS: HUMALOG SQ PRN (08:50)
[2020-09-26] MEDS: ENOXAPARIN SODIUM SQ SCH (09:32)
[2020-09-26] MEDS: DECADRON 10MG INJ. IV SCH (09:33)
[2020-09-26 11:11] VITALS: BP 154/66; PULSE 59; O2SAT 94
[2020-09-26 15:15] LABS: Lymphocytes 7 % (24-44); Monocyte 6 % (0.0-12.0); Neutrophils 87 % (36.0-66.0); Platelet Estimate NORMAL (NORMAL); Total Cells Counted 100
== END 2020-09-26 10:55 | disposition home or self-care (01) ==
LOC: MED SURG 12:04
PROVIDERS: ADMIT General Practice; ATTEND Family Medicine
DX: U07.1 COVID-19 (principal); J12.82 Pneumonia due to coronavirus disease 2019; E11.9 Type 2 diabetes mellitus without complications; E78.5 Hyperlipidemia, unspecified; Z79.899 Other long term (current) drug therapy; I10 Essential (primary) hypertension; F41.9 Anxiety disorder, unspecified; Z20.828 Contact with and (suspected) exposure to other viral communicable diseases
CPT/HCPCS: 0241U; 36415; 71045; 80053; 82947; 83036; 83880; 85025; 85379; 93268; 94762; G0378; J1100; J1650; J1817; J2405; A9270-GY

== ENCOUNTER 2021-04-22 17:34 | Emergency (ER) | payer MEDICARE ==
--- NOTE | 2021-04-22 19:07 | ERPHSYRPT ---
- History of Present Illness Source: patient Exam Limitations: no limitations Patient Subjective Stated Complaint: Pt states "I fell the day before and hurt my right hip, had it x rayed and it was ok. It has been hurting ever since. They came to x ray it again today and when they jostled me around I could not take the pain. They called in tramadol but the pharmacy is closed and I just hurt to bad." Triage Nursing Assessment: Pt presented alert and oriented X 3, skin pwd. Pt able to speak in clear full sentences pt in no apparent respiratory distress. pt has tenderness ot her right hip. Occurred: this morning Reason for Fall: unknown Injuries/Pain Location: lower extremity (Right hip) Loss of Consciousness: no loss of consciousness Quality: throbbing Severity of Pain-Max: severe Severity of Pain-Current: severe Modifying Factors: Improves With: nothing Associated Symptoms (Fall): denies symptoms Hx Tetanus, Diphtheria Vaccination/Date Given: No Hx Influenza Vaccination/Date Given: Yes Hx Pneumococcal Vaccination/Date Given: Yes Immunizations Up to Date: Yes <NE HINES - Last Filed: 04/22/21 19:01> <MINA PEREZ - Last Filed: 04/22/21 19:42> - History of Present Illness Time Seen by Provider: 04/22/21 17:45 Physician History: Patient is a 71-year-old white female who is obese and fell the day before and injured her right hip. She has been having PT at home and getting worse today x-ray was attempted by home health results uncertain and she had markedly increased pain after the x-ray. (NE HINES) Allergies/Adverse Reactions: acetaminophen [From Darvocet-N 100] Allergy (Unknown, Verified 09/22/20 12:47) Hives propoxyphene [From Darvocet-N 100] Allergy (Unknown, Verified 09/22/20 12:47) Hives Penicillins Allergy (Verified 05/12/19 10:57) Hives prednisone Allergy (Verified 05/12/19 10:57) Hives Sulfa (Sulfonamide Antibiotics) Allergy (Verified 05/12/19 10:57) Hives Home Medications: Atenolol 50 mg [Tenormin 50 mg] 1 tab PO HS 10/18/16 [History] Cetirizine HCl [Zyrtec] 1 tab PO HS 10/18/16 [History] Glipizide [Glipizide ER] 1 tab PO HS 10/18/16 [History] Insulin Aspart [NovoLOG Insulin] 40 unit SQ DAILY 10/18/16 [History] Insulin Detemir [Levemir] 100 units SQ DAILY 10/18/16 [History] Losartan Potassium 1 tab PO QHS 10/18/16 [History] Metformin HCl 500 mg [Glucophage 500 MG] 1 tab PO HS 10/18/16 [History] Milnacipran HCl [Savella] 1 tab PO DAILY 10/18/16 [History] Ibuprofen 200 mg [Motrin 200 mg] 200 mg PO Q4HPRN PRN 09/22/20 [History] Travel Risk - International Travel Have you traveled outside of the country in past 3 weeks: No - Coronavirus Screening Are you exhibiting any of the following symptoms?: No Close contact with a COVID-19 positive Pt in past 14-21 Days: No - Vaccine Status Have you recieved a Covid-19 vaccination: No <NE HINES - Last Filed: 04/22/21 19:01> - Review of Systems Constitutional: No Fever, No Chills Eyes: No Symptoms Ears, Nose, & Throat: No Symptoms Respiratory: No Cough, No Dyspnea Cardiac: No Chest Pain, No Edema, No Syncope Abdominal/Gastrointestinal: No Abdominal Pain, No Nausea, No Vomiting, No Diarrhea Genitourinary Symptoms: No Dysuria Musculoskeletal: Joint Pain, No Back Pain, No Neck Pain Skin: No Rash Neurological: No Dizziness, No Focal Weakness, No Sensory Changes Psychological: No Symptoms Endocrine: No Symptoms All Other Systems: Reviewed and Negative <NE HINES - Last Filed: 04/22/21 19:01> - Past Medical History Pertinent Past Medical History: Yes Neurological History: No Pertinent History ENT History: No Pertinent History Cardiac History: Hypertension Respiratory History: Pneumonia Endocrine Medical History: Diabetes Type II Musculoskeletal History: Fibromyalgia, Osteoarthritis GI Medical History: No Pertinent History History: No Pertinent History Psycho-Social History: Panic Disorder Female Reproductive Disorders: No Pertinent History Other Medical History: heart valve issue, - Past Surgical History Past Surgical History: Yes Neuro Surgical History: No Pertinent History Cardiac: No Pertinent History Respiratory: No Pertinent History Gastrointestinal: No Pertinent History Genitourinary: No Pertinent History Musculoskeletal: Orthopedic Surgery Female Surgical History: Hysterectomy Other Surgical History: KNEE SURGERIES BILATERALLY - Social History Smoking Status: Former smoker Exposure to second hand smoke: No Drug Use: none Patient Lives Alone: No - Female History Hx Now: No <NE HINES Filed: 04/22/21 19:01> - Desmond Coma Score Best Eye Response ([place]mond): (4) open spontaneously Best Verbal Response ([place]): (5) oriented Best Motor Response ([place]): (6) obeys commands [place] Total: 15 - Physical Exam General Appearance: no apparent distress, alert Head Injury: no evidence of injury Eye Exam: PERRL/EOMI ENT Exam: airway nml Neck Exam: normal inspection, No tenderness Respiratory/Chest Exam: normal breath sounds, No chest tenderness, No respiratory distress Cardiovascular Exam: normal heart sounds, regular rate/rhythm Gastrointestinal Exam: soft, No tenderness, No distention, No guarding, No ecchymosis Back Exam: normal inspection, No vertebral tenderness Extremity Exam: normal inspection, normal range of motion, pelvis stable, other (Posterior pelvis seems stable), No deformities Neurologic Exam: alert, oriented x 3, cooperative, sensation nml, No motor deficits Skin Exam: normal color, warm, dry SpO2 Interpretation: normal SpO2: 98 O2 Delivery: Room Air <NE HINES Filed: 04/22/21 19:01> - Nursing Vital Signs Nursing Vital Signs: Initial Vital Signs Temperature 98.6 F 04/22/21 17:35 Pulse Rate 92 H 04/22/21 17:35 Respiratory Rate 20 04/22/21 17:35 Blood Pressure 153/74 04/22/21 17:35 O2 Sat by Pulse Oximetry 95 04/22/21 17:35 Pain Scale Pain Intensity 9 - Course Nursing assessment & vital signs reviewed: Yes - CT Exams Lower Extremity CT Interpretation: Other (CT scan shows a slightly impacted right femur subcapital fracture) <NE HINES Filed: 04/22/21 19:01> Ordered Tests: Active Orders 24 hr Category Date Time Status Catheter-Mercer Brenner STAT Care 04/22/21 19:11 Active IV Insertion STAT Care 04/22/21 19:14 Active Oxygen-ED Only Nasal Cannula 3 lpm Care 04/22/21 19:25 Active LOWER EXTREMITY WO CONTRAST [CT] Stat Exams 04/22/21 17:49 Taken CBC W DIFF Stat Lab 04/22/21 19:11 Ordered CMP Stat Lab 04/22/21 19:11 Ordered CULTURE,URINE Stat Lab 04/22/21 19:12 Ordered PROTIME WITH INR Stat Lab 04/22/21 19:11 Ordered UA W/RFX UR CULTURE Stat Lab 04/22/21 19:11 Ordered Medication Summary Generic Name Dose Route Start Last Admin Trade Name Freq PRN Reason Stop Dose Admin Sodium Chloride 1,000 mls @ 100 mls/hr 04/22/21 19:15 04/22/21 19:19 Sodium Chloride 0.9% 1000 Ml IV 05/22/21 19:14 100 mls/hr .Q10H ENMANUEL Administration Discontinued Medications Generic Name Dose Route Start Last Admin Trade Name Freq PRN Reason Stop Dose Admin Hydromorphone HCl 1 mg 04/22/21 19:08 04/22/21 19:20 Hydromorphone 1 Mg/1ml Inj 1 Mg/Ml Syringe IV 04/22/21 19:09 1 mg STAT ONE Administration Hydromorphone HCl Confirm 04/22/21 19:16 Hydromorphone 1 Mg/1ml Inj 1 Mg/Ml Syringe Administered 04/22/21 19:17 Dose 1 mg .ROUTE .STK-MED ONE Ondansetron HCl 4 mg 04/22/21 19:11 04/22/21 19:19 Ondansetron Hcl 4 Mg/2 Ml Vial IV 04/22/21 19:12 4 mg STAT ONE Administration Ondansetron HCl Confirm 04/22/21 19:16 Ondansetron Hcl 4 Mg/2 Ml Vial Administered 04/22/21 19:17 Dose 4 mg .ROUTE .STK-MED ONE - Progress Progress: unchanged <NE HINES - Last Filed: 04/22/21 19:01> - Progress Counseled pt/family regarding: lab results, diagnosis, need for follow-up, rad results <MINA PEREZ - Last Filed: 04/22/21 19:42> - Progress Progress Note: 04/22/21 19:40 Medical decision making: This [facility] and was having pain in the right hip. She was receiving physical therapy. On 04/01/2021 she underwent hip and pelvic x-ray and there was no evidence of any abnormalities. However, she was having a lot of pain in the right hip today and physical therapy was there and it was too painful for her to have an x-ray done. Patient was sent to the emergency department where a CT scan was performed which showed a right subcapital hip fracture. I contacted [facility] Dr. Melissa. She has the trauma surgeon on at that facility. I reviewed the patient history and the findings on the CAT scan of the right hip. She accepts the patient in transfer. (MINA PEREZ) - Departure Critical Care Time: No <NE HINES - Last Filed: 04/22/21 19:01> - Departure Departure Disposition: Transfer Critical Care Time: No <MINA PEREZ - Last Filed: 04/22/21 19:42> - Departure Clinical Impression: Hip fracture, right Condition: Stable Referrals: LEONEL YANCEY MD [Primary Care Provider] - Follow up/PCP as directed Instructions: Hip Fracture (DC)
[2021-04-22] MEDS ORDERED: Hydromorphone 1 mg/ml Injection IV ONE (19:08)
[2021-04-22] MEDS ORDERED: Zofran 4 MG/2 ML VIAL IV ONE (19:11)
[2021-04-22] MEDS ORDERED: Sodium Chloride 0.9% 1000 ML 1,000 ML IV SCH (19:15)
[2021-04-22] MEDS ORDERED: Sodium Chloride 0.9% 1000 ML 1,000 ML ONE (19:16)
[2021-04-22] MEDS ORDERED: Hydromorphone 1 mg/ml Injection ONE (19:16)
[2021-04-22] MEDS ORDERED: Zofran 4 MG/2 ML VIAL ONE (19:16)
[2021-04-22 19:51] LABS: Hematocrit 42.6 % (35-47); Hemoglobin 13.1 gm/dl (12.0-16.0); Mean Cell Volume 94.7 fl (78-100); Mean Corpuscular Hemoglobin 29.1 pg (26-32); Mean Corpuscular Hgb Concent. 30.8 g/dl (32-36); Mean Platelet Volume 8.9 fl (7.5-11.0); Platelet Count 257 K/mm3 (150-450); Red Cell Distribution Width 14.8 % (11.5-14.0); White Blood Count 5.4 K/mm3 (4.0-10.5)
[2021-04-22 20:02] LABS: ALBUMIN 3.2 g/dL (3.5-5.0); ALKALINE PHOSPHATASE 703 U/L (38-126); ANION GAP 10.9 MEQ/L (5-15); BLOOD UREA NITROGEN 27 mg/dL (7-17); CHLORIDE 96 mmol/L (98-107); Calcium 10.1 mg/dL (8.4-10.2); Carbon Dioxide 33 mmol/L (22-30); Creatinine 1 0.85 mg/dL (0.52-1.04); EST GLOMERULAR FILTRATION RATE > 60.0 ML/MIN; Glucose 149 mg/dL (74-106); SGOT/AST 217 U/L (14-36); SGPT/ALT 31 U/L (0-35); SODIUM 135 mmol/L (137-145); Total Protein 7.6 g/dL (6.3-8.2)
[2021-04-22 20:13] LABS: INR 1.12 (0.8-3.0); PROTIME 13.2 SECONDS (9.4-12.5)
[2021-04-22 20:36] LABS: Appearance SLIGHTLY CLOUDY (CLEAR); Bacteria FEW /HPF (NEGATIVE); Bilirubin NEGATIVE (NEGATIVE); Blood NEGATIVE Ery/ul (0-5); Epithelial Cells RARE /HPF (FEW); Glucose NEGATIVE (NEGATIVE); Ketones TRACE (NEGATIVE); Leukocyte Esterase NEGATIVE (NEGATIVE); Mucus SLIGHT /HPF (NEGATIVE); Nitrite NEGATIVE (NEGATIVE); Protein,Urine Dip 30 (Negative); Specific Gravity 1.029 (1.005-1.025); Urobilinogen 4 mg/dL (0-1)
[2021-04-22 21:14] VITALS: BP 134/59; PULSE 99; O2SAT 95
[2021-04-22 22:00] LABS: ATYPICAL LYMPHS 1 %; BAND 5 % (0.0-2.0); Eosinophil 2 % (0.00-3.0); Lymphocytes 12 % (24-44); Monocyte 2 % (0.0-12.0); Neutrophils 78 % (36.0-66.0); Platelet Estimate NORMAL (NORMAL); Total Cells Counted 100
--- NOTE | 2021-04-23 08:50 | XRAY ---
Indication: Right hip pain following fall. Multiple contiguous images obtained through the pelvis with special attention to the osseous structures. Sagittal and coronal reformatted images obtained. Comparison: None Right femur demonstrates slightly impacted/angulated subcapital fracture. Fracture line extends inferiorly to involve the lesser trochanter. Remaining pelvis demonstrates a few bilateral patchy radiolucent lesions, largest adjacent to the right SI joint. Similar radiolucent lesions seen of the proximal femur bilaterally. 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 Both hip articulation intact with mild bilateral degenerative arthropathy. Visualized noncontrasted soft tissues demonstrates mild scattered aortoiliac calcifications. Previous hysterectomy. No pathologic pelvic or inguinal lymphadenopathy. Impression: 1. Proximal right femur fracture as detailed. 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 2. Incidental mild bilateral hip degenerative arthropathy and scattered arteriosclerotic calcifications.
== END 2021-04-22 21:20 | disposition short-term general hospital (02) ==
LOC: ED 17:34
DX: S72.011A Unspecified intracapsular fracture of right femur, initial encounter for closed fracture (principal); W19.XXXA Unspecified fall, initial encounter; E11.9 Type 2 diabetes mellitus without complications; Z79.4 Long term (current) use of insulin; Z79.84 Long term (current) use of oral hypoglycemic drugs; I10 Essential (primary) hypertension
CPT/HCPCS: 36000; 36415; 51702; 73700; 80053; 81001; 85025; 85610; 87086; 96374; 96375; 99285; J1170; J2405